=== PATIENT | male | born 1975 | race American Indian/Alaskan Native ===

== ENCOUNTER 2018-06-30 05:38 | Emergency (ER) | payer OTHER ==
--- NOTE | 2018-06-30 06:20 | C.PDOC ---
History Of Present Illness 42 year old male presents to the ED for evaluation of background headache for the past 2 days. Patient states he does not have pain, it feels foggy and associated with nasal congestion. Patient thinks is a sinus headache but wants to be evaluated. Patient has not taken any medications for his symptoms. Patient denies fever, chills, visual changes, neck pain, CP, SOB, weakness. Time Seen by Provider: 06/30/18 05:42 Chief Complaint (Nursing): Medical Clearance History Per: Patient History/Exam Limitations: no limitations Onset/Duration Of Symptoms: Days (2) Current Symptoms Are (Timing): Still Present Recent travel outside of the [place]: No Additional History Per: Patient Past Medical History Reviewed: Historical Data, Nursing Documentation, Vital Signs Vital Signs: Last Vital Signs Temp 98.6 F 06/30/18 05:44 Pulse 65 06/30/18 05:44 Resp 22 06/30/18 05:44 BP 119/73 06/30/18 05:44 Pulse Ox 98 06/30/18 05:44 - Medical History PMH: No Chronic Diseases Surgical History: No Surg Hx Family History: States: Unknown Family Hx - Social History Hx Alcohol Use: No Hx Substance Use: No - Immunization History Hx Tetanus Toxoid Vaccination: No Hx Influenza Vaccination: No Hx Pneumococcal Vaccination: No Review Of Systems Constitutional: Negative for: Fever, Chills, Weakness Eyes: Negative for: Vision Change ENT: Negative for: Mouth Swelling Respiratory: Negative for: Cough, Shortness of Breath Gastrointestinal: Negative for: Nausea, Vomiting, Diarrhea Musculoskeletal: Negative for: Neck Pain Skin: Negative for: Rash Neurological: Positive for: Headache. Negative for: Weakness, Numbness, Dizziness Physical Exam - Physical Exam Appears: Well, Non-toxic, No Acute Distress Skin: Normal Color, Warm, No Rash Head: Atraumatic, Normacephalic, No Tenderness (sinus) Eye(s): bilateral: Normal Inspection (no scleral icterus), PERRL, EOMI Nose: Other (enlarged turbinates, L>R) Oral Mucosa: Moist Neck: Normal ROM, No Midline Cervical Tenderness, Supple Chest: Symmetrical Respiratory: No Accessory Muscle Use, Other (normal inspiratory effort) Extremity: Normal ROM (x4 ) Neurological/Psych: Oriented x3, Normal Speech, Other (non focal) ED Course And Treatment O2 Sat by Pulse Oximetry: 98 (ON RA) Pulse Ox Interpretation: Normal Medical Decision Making Medical Decision Making: Plan: * Motrin 800 mg PO * Reglan 10 mg IM Patient reports feeling better. He remains A&Ox3 without neuro deficit. 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 - Scribe Statement The provider has reviewed the documentation as recorded by the Scribe Shadi Oneill All medical record entries made by the Scribe were at my direction and personally dictated by me. I have reviewed the chart and agree that the record accurately reflects my personal performance of the history, physical exam, medical decision making, and the department course for this patient. I have also personally directed, reviewed, and agree with the discharge instructions and disposition.
[2018-06-30 06:59] VITALS: BP 110/70; PULSE 68; RESP 16; TEMP 98.8; O2SAT 99
== END 2018-06-30 07:00 | disposition home or self-care (01) ==
LOC: C.ER 05:38
DX: R51 Headache (principal)
CPT/HCPCS: 96372; 99283; J2765